=== PATIENT | female | born 1945 | race Caucasian/White ===

== ENCOUNTER 2018-08-08 08:20 | Observation (INO) | payer MEDICARE, OTHER ==
[~2018-08-08] VITALS: Ht 162.6 cm; Wt 72.9 kg
[2018-08-08] MEDS ORDERED: ZYRTEC10 MG PO (12:39)
--- NOTE | 2018-08-08 12:45 | NUR ---
PT ADMITTED TO ROOM 110. THIS RN BROUGHT PATIENT TO ROOM VIA STRETCH. PT WAS ABLE TO GET UP AND WALK FROM STRETCHER INTO BATHROOM. PT TOLERATED WELL AND WAS STEADY ON HER FEET. PT BOWEL TONES ACTIVE. BREATH SOUNDS CLEAR. PT NEURO ASSESSMENT COMPLETED. PT FACIAL EXPRESSIONS SYMMETRICAL. HAND LEVEL VIAL MARKER STRONG AND EQUAL. PUPILS EQUAL AND REACTIVE. LEG STRENGTH EQUAL. NO ABNORMALITIES NOTED. TINGLING AND NUMBNESS HAVE RESOLVED. WILL CONTINUE TO CLOSELY MONITOR.
--- NOTE | 2018-08-08 13:10 | NUR ---
PT RESTING IN BED. GAVE MENU TO LOOK AT OPTIONS. PT ABLE TO SWALLOW WATER WITH NO DIFFICULTIES. PT NEVER HAD ANY SLURRED SPEACH OR DIFFICULTY WITH SWALLOWING THIS AM. PT HAS CALL LIGHT IN HAND AND FAMILY AT BEDSIDE. PT ORIENTED TO ROOM. PT EDUCATED TO CALL STAFF IF SHE NEEDS TO GET UP AND STAFF WILL ASSIST HER. WILL CONTINUE TO CLOSELY MONTIOR.
[2018-08-08] MEDS ORDERED: RESTASIS1 DROP OU (13:33)
--- NOTE | 2018-08-08 14:05 | NUR ---
PT REPORT GIVEN TO TERI NEGRON AND HE WILL RESUME CARE AT THIS TIME. PT IS RESTING IN BED AT THIS TIME. CALL LIGHT IN REACH. FAMILY AT BEDSIDE.
--- NOTE | 2018-08-08 14:06 | NUR ---
Report received from TERI dumont. Pt sitting up in bed, eating lunch denies having any current concerns or requests at this time. Call light in reach. Family at bedside.
--- NOTE | 2018-08-08 15:07 | NUR ---
PATIENT RESTING IN BED. FAMILY IN ROOM. VITAL SIGNS AND I&O DONE. CALL LIGHT WITHIN REACH. ICE WATER GIVEN. NO OTHER NEEDS AT THIS TIME
--- NOTE | 2018-08-08 15:22 | NUR ---
pt resting supine in bed, concersing with family who remain at bedside. Assessment completed. call light and h20 in reach. pt denies needs or concerns.
--- NOTE | 2018-08-08 17:29 | NUR ---
Medications reconciled
--- NOTE | 2018-08-08 17:43 | NUR ---
PATIENT RESTING IN BED. IN ROOM. VITAL SIGNS AND I&O DONE. ICE WATER GIVEN. CALL LIGHT WITHIN REACH. NO OTHER NEEDS AT THIS TIME/
--- NOTE | 2018-08-08 19:42 | NUR ---
COOP WITH ASSESSMENT, NO DEFICITS, NO C/O CP
--- NOTE | 2018-08-08 19:47 | NUR ---
HIH STROKE SCALE COMPELTED, NO ABNORMALITIES
--- NOTE | 2018-08-08 23:13 | NUR ---
REPOSITIONS SELF IN BED, NO C/O CP OR SOB, EAR PLUGS AND EYE MASK GIVEN ON REQUESTS. CALL LIGHT AND LIQUIDS AT BEDSIDE. ALRT AND ORIENTED, NO DEFICTS NOTED. TELE#[address], READING SINUS RHYTHM
--- NOTE | 2018-08-09 00:50 | NUR ---
RESTING, AWAKES EASILY, NO C/O DISTRESS OR CP. COOP WITH ASSESSMENT
--- NOTE | 2018-08-09 03:44 | NUR ---
Resting, eyes closed, no c/o pain, tele#[address], sinus beverly readings at this time p 55
--- NOTE | 2018-08-09 04:19 | NUR ---
up to br, voided, back to bed,. tolerated well, no c/o pain, no cp
--- NOTE | 2018-08-09 04:52 | NUR ---
CURRENTLY RESTING, NO C/O CP OR SOB. TELE#[address], SINUS DERRICK READING. UP TO BR W/O HELP. TOLERATED WELL, NEGATIVE DEFICITS FROM STROKE. NIH ASSESSMENTS HAVE BEEN -ZERO-, TOLERATING FLUIDS W/O PROBLEMS.
--- NOTE | 2018-08-09 07:01 | NUR ---
Report received from TERI Delgadillo. Pt resting supine in bed, reading pt education packet. Neuro Check performed and no s/sx's reported or observed during assessment. Call light and h20 in reach.
--- NOTE | 2018-08-09 08:50 | NUR ---
pt resting supine in bed, reading a book. assessment completed call light in reach. Fresh coffee provided per pt request. Pt denies any numbness tingling or burning. Pt states she hasn't had any symptoms since she left the ER and anticipates being discharged at some point this morning. Call light and h20 in reach. Pt denies further concerns or requests at this time.
[2018-08-09] MEDS ORDERED: ASPIRIN EC81 MG PO (10:55)
[2018-08-09] MEDS ORDERED: ATORVASTATIN CA40 MG PO (10:56)
--- NOTE | 2018-08-09 11:11 | NUR ---
VISIT WITH PATIENT FOR CASE MANAGEMENT INITIAL ASSESSMENT. PT HAS BEEN LIVING AT HOME WITH SPOUSE INDEPENDENT. PT DENIES ANY DEFICITS AT THIS TIME AND FEELS SHE CAN RETURN HOME AND RESUME HER NORMAL ACTIVITY. SPOUSE WILL DRIVE HER. DR SHEN IN ROOM AND DISCUSSED DISCHARGE. PT DENIES QUESTIONS OR CONCERNS. WILL NOTIFY NURSES IF DISCHARGE CONCERNS AND CALL CASE MANAGEMENT.
--- NOTE | 2018-08-09 12:51 | NUR ---
PT DRESSED, SITTING IN CHAIR FINISHING LUNCH. PT STATED THAT SHE IS FEELING MUCH BETTER, AND IS LOOKING FORWARD TO GOING HOME. PT'S WAS PRESENT, BOTH SEEMED TO UNDERSTAND DC ORDERS. EXTENDED A BLESSING, WILL FOLLOW NEEDED
--- NOTE | 2018-08-09 15:51 | EKG ---
[facility] [address] [place], [place] [id number] Signed Sinus bradycardia Possible Inferior infarct , age undetermined Abnormal ECG No previous ECGs available Confirmed by DAVID FIGUEROA MD ([id number]) on 08/09/2018 3:50:55 PM Electronically Signed By: DAVID FIGUEROA MD 08/09/18 155 PATIENT NAME: NOE BARRIENTOS Electrocardiogram DATE OF : 41 PHYSICIAN: DAVID FIGUEROA MD REPORT #: [id number] REPORT IS CONFIDENTIAL AND NOT TO BE RELEASED WITHOUT AUTHORIZATION
== END 2018-08-09 11:45 | disposition home or self-care (01) ==
LOC: ED 08:20 → MS 08:21
PROVIDERS: ADMIT Internal Medicine
DX: G45.1 Carotid artery syndrome (hemispheric) (principal); E78.5 Hyperlipidemia, unspecified; R73.03 Prediabetes; R03.0 Elevated blood-pressure reading, without diagnosis of hypertension; Z87.891 Personal history of nicotine dependence; Z79.899 Other long term (current) drug therapy; Z88.5 Allergy status to narcotic agent
CPT/HCPCS: 36415; 70450; 70496; 70498; 71045; 80053; 80061; 83036; 85025; 85610; 85730; 93005; 93010; 93306; 99285-25; G0378; Q9967